=== PATIENT | male | born 1965 | race Caucasian/White ===

== ENCOUNTER 2018-09-17 11:39 | Day surgery (SDC) | payer MEDICAID, OTHER ==
[2018-09-17] MEDS ORDERED: MIDAZOLAM 1 MG/ML 2 ML INJ ×2 (15:27)
[2018-09-17] MEDS ORDERED: FENTAnyl 50 MCG/ML VIAL (15:28)
== END 2018-09-17 16:51 | disposition home or self-care (01) ==
LOC: GIL 11:39
DX: Z12.11 Encounter for screening for malignant neoplasm of colon (principal); Z80.0 Family history of malignant neoplasm of digestive organs
CPT/HCPCS: 45378